=== PATIENT | male | born 1985 | race African-American/Black ===

== ENCOUNTER 2024-12-09 08:24 | Emergency (ER) | payer MEDICAID, SELFPAY ==
[2024-12-09 08:32] VITALS: BP 161/98; PULSE 78; RESP 18; TEMP 36.6; O2SAT 96; BMI 29.7
--- NOTE | 2024-12-09 08:38 | XR_ITS ---
EXAMINATION: Ankle, left 3 views . Technique: Ankle AP, oblique, lateral 3 views Date and time of exam: December 09, 2024 0847 hours INDICATIONS: Twisting injury to the ankle today, ankle pain. FINDINGS: Prominent lateral malleolar soft tissue swelling Chip fractures off the fibular tip which may be acute No ankle dislocation IMPRESSION: Small chip fractures off the fibular tip, which may be acute, clinical correlation advised
--- NOTE | 2024-12-09 09:35 | PD.EDANKLE ---
Lower Extremity Injury RME/HPI General Chief Complaint: Ankle/Foot Injury Stated Complaint: LEFT ANKLE SWELLING/PAIN Time Seen by Provider: 12/09/24 08:29 Source: patient Arrival date/time: 12/09/24 08:24 39-year-old male presents emergency department with complaints of left ankle pain. 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 Reports having pain attempted to continue to walk however he exacerbated pain prompted his ED visit today. Patient did not attempt any interventions or take any OTC medications prior to ED visit. Patient denies any other associated symptoms or aggravating factors. No modifying factors, no radiation, no migration. Mode of arrival: ambulatory Related Data Previous Rx's ?Medication ?Instructions ?Recorded ibuprofen 800 mg tablet 800 mg PO Q6H PRN pain #14 tabs 04/30/21 Allergies Allergy/AdvReac Type Severity Reaction Status Date / Time No Known Allergies Allergy Unknown Uncoded 12/09/24 08:25 Review of Systems Review of Systems Systems Reviewed: All systems reviewed, normal except as documented Narrative Review of Systems: Gen: No fever, no chills, no weight loss EYES: No discharge, no visual changes, no pain HEENT: No ear pain, no congestion, no sore throat PULM: No shortness of breath, no cough, no congestion CV: No chest pain, no dyspnea on exertion, no palpitations GI: No nausea, no vomiting, no diarrhea, no pain, no constipation : No frequency, no urgency,? no dysuria Musc/skel: Left ankle pain, no back pain Skin: No rash? ED Exam Narrative Physical exam: General: Sittiing in Exam table in no acute distress, answering questions appropriately HENT: normocephalic, atraumatic, EOMI, PERRLA, moist mucous membranes Chest: chest wall is nontender Cardiac: regular rate and rhythm, normal S1 and S2, no murmurs, rubs, or gallops, capillary refill ?2 seconds Pulmonary: clear to auscultation bilaterally, no wheezing, crackles, or rhonchi Abdominal: active bowel sounds, soft, nontender, nondistended Neuro: A&OX3, CN II-XII intact, sensation grossly intact bilaterally in UE and LE. Skin: no rashes, no ecchymosis Ext: Left lower malleolus swelling and tenderness Course Quality Measures none Orders Category Date Time Status XR ankle comp LT min 3V Stat Exams 12/09/24 08:38 Completed Vital Signs Vital signs: Vital Signs Temperature 97.8 F 12/09/24 08:32 Pulse Rate 78 12/09/24 08:32 Respiratory Rate 18 12/09/24 08:32 Blood Pressure 161/98 H 12/09/24 08:32 Pulse Oximetry (%) 96 12/09/24 08:32 Oxygen Delivery Method Room Air 12/09/24 08:32 Extremity Injury, Lower MDM Narrative MDM Narrative:: 39-year-old female appears to have a small chip fractures to his left fibular bone. He was placed in a ankle stirrup, crutches were given. Patient is to follow-up with his Worker's Comp. doctor. And PCP for follow-up care. Strict ER precautions given to return if there is any worsening symptoms or condition. Patient data External records reviewed:: [facility] previous records Clinical information provided by:: patient Social determinants that could affect healthcare access:: none Patient has the following chronic illnesses:: None How is presenting disease/condition affected by chronic disease/condition?: no chronic disease Evaluation data The following diagnostics were reviewed and interpreted by me:: radiology exam(s) Lab and/or radiology exams considered but not ordered:: No Interpretation Summary: EXAMINATION: Ankle, left 3 views . Technique: Ankle AP, oblique, lateral 3 views Date and time of exam: December 09, 2024 0847 hours INDICATIONS: Twisting injury to the ankle today, ankle pain. FINDINGS: Prominent lateral malleolar soft tissue swelling Chip fractures off the fibular tip which may be acute No ankle dislocation IMPRESSION: Small chip fractures off the fibular tip, which may be acute, clinical correlation advised Medications / Prescriptions Medications or Prescriptions considered but not ordered:: No Medication administrations:: No Consultations Consultation(s) initiated? (list below): No Diagnosis Extremity Injury, Lower Differential Diagnosis: ankle sprain and strain, acute internal derangement of knee, puncture wound of foot, fracture of toe and ankle fracture Most likely diagnosis given after review of the tests above:: Ankle fracture Admission Indicated Admission indicated?: not indicated Admission Request Was there a request for admission?: No Disposition Plan Disposition Plan: Discharge Discharge Attestation Discharge Attestation: The patient and all family members were given an opportunity to ask questions and understood the discharge instructions. Discharge instructions specifically effects, indications for sooner follow up or return to the emergency department, and the expected course of current diagnosis. Patient condition: Stable Discharge Plan Plan Patient Disposition: HOME (Self Care) Prescriptions/Referrals Prescriptions/Med Rec: No Action ibuprofen 800 mg tablet 800 mg PO Q6H PRN (Reason: pain) Qty: 14 0RF Referrals: Cameron Sky MD [Primary Care Provider] - In 1 week Problem List Clinical Impression: Ankle fracture, left Patient/Caregiver Discharge Instructions Discharge Activity: activity as tolerated Education Materials: ED Ankle Fracture Additional Instructions: You have a small chip fracture to your left ankle. You will need to wear the splint use crutches do not bear weight on that limb You are going to have to see your Worker's Comp. doctor, or doctor for follow-up care You will need an orthopedic referral for continuum of care I will give you 1 week off work however you will need an extension from your PCP or Worker's Comp. doctor. Return to the emergency department this any worsening symptoms change in condition. Print Language: Albanian Stand Alone Forms: Crystal Award Info., Work/School Release, Patient Portal Info Letter PA/ANA Supervising Physician PA/ANA Supervising Physician: Dr [email or web address]
== END 2024-12-09 12:51 | disposition home or self-care (01) ==
PROVIDERS: Emergency Provider Family Medicine; PCP Family Medicine
DX: S82.892A Other fracture of left lower leg, initial encounter for closed fracture (principal); X58.XXXA Exposure to other specified factors, initial encounter; Y99.0 Civilian activity done for income or pay
CPT/HCPCS: 73610; 99283